=== PATIENT | female | born 1950 | race Caucasian/White ===

== ENCOUNTER 2021-02-04 12:39 | Inpatient (IN) | payer MEDICARE ==
[2021-02-04] MEDS ORDERED: MORPHINE SULFATE 4 MG/ML SYRINGE IV STA (13:18)
[2021-02-04] MEDS ORDERED: ONDANSETRON 4 MG/2 ML VIAL IVP STA (13:18)
[2021-02-04 13:36] LABS: Basophils % (A) 0 %; Eosinophils % (A) 0 %; HCT 43.6 % (34.0-46.0); HGB 14.6 gm/dL (11.4-16.0); Lymphocytes # (A) 0.7 k/uL (1.0-4.8); Lymphocytes % (A) 24 %; MCH 30.7 pg (25.0-35.0); MCHC 33.4 g/dL (31.0-37.0); MCV 92.1 fL (80.0-100.0); Mean Platelet Volume 7.9; Monocytes # (A) 0.2 k/uL (0-1.0); Monocytes % (A) 7 %; Neutrophils % (A) 65 %; Platelet Count 142 k/uL (150-450); RBC 4.74 m/uL (3.80-5.40); RDW 13.4 % (11.5-15.5)
[2021-02-04 13:50] LABS: Albumin 3.3 g/dL (3.5-5.0); Calcium 8.5 mg/dL (8.4-10.2); INR 0.9 (<1.2); Magnesium 2.1 mg/dL (1.6-2.3); Partial Thromboplastin Time 23.5 sec (22.0-30.0); Potassium 4.2 mmol/L (3.5-5.1); Prothrombin Time 10.2 sec (9.0-12.0); Total Bilirubin 0.8 mg/dL (0.2-1.3); Total Protein 6.1 g/dL (6.3-8.2)
--- NOTE | 2021-02-04 15:19 | XR ---
EXAMINATION TYPE: XR chest 2V DATE OF EXAM: 02/04/2021 COMPARISON: NONE HISTORY: Shortness of breath TECHNIQUE: Frontal and lateral views of the chest are obtained. FINDINGS: Scattered senescent parenchymal changes noted. Hyperinflation compatible with COPD. Reticulonodular infiltrates are seen bilaterally compatible with underlying pneumonia. Heart size is stable. Mediastinal structures are stable and grossly unremarkable. No evidence for hilar prominence. Degenerative changes dorsal spine. IMPRESSION: 1. Reticulonodular infiltrates are seen bilaterally compatible with underlying pneumonia.
[2021-02-04] MEDS ORDERED: HYDROmorphone 0.5 MG/0.5 ML SYRINGE IVP STA (15:25)
--- NOTE | 2021-02-04 15:30 | ED ---
General Adult HPI - General Chief complaint: Back Pain/Injury Stated complaint: Back pain/Covid+ Time Seen by Provider: 02/04/21 12:52 Source: patient, EMS, RN notes reviewed Mode of arrival: EMS Limitations: no limitations - History of Present Illness Initial comments: This a 70-year-old female presents emergency from via EMS chief complaint of back pain, COVID-19, dyspnea. Patient diagnosed with COVID-19 few days ago did receive monoclonal antibodies. She states she steadily worsening. Patient states she's had increased shortness of breath while on oxygen at home. Patient does have known COPD. Patient states she's having right-sided upper back pain. States it hurts when she coughs, moves. No trauma denies abdominal pain no nausea vomiting no leg swelling or leg pain. - Related Data Allergies Allergy/AdvReac Type Severity Reaction Status Date / Time ibuprofen [From Motrin] Allergy Unknown Verified 02/04/21 13:10 Review of Systems ROS Statement: Those systems with pertinent positive or pertinent negative responses have been documented in the HPI. ROS Other: All systems not noted in ROS Statement are negative. Past Medical History Past Medical History: Asthma, COPD, Neurologic Disorder History of Any Multi-Drug Resistant Organisms: None Reported Past Surgical History: Back Surgery, Hernia Repair, Hysterectomy, Tubal Ligation Past Psychological History: Bipolar Smoking Status: Never smoker Past Alcohol Use History: None Reported Past Drug Use History: None Reported General Exam General appearance: alert, in no apparent distress Head exam: Present: atraumatic, normocephalic, normal inspection Eye exam: Present: normal appearance, PERRL, EOMI. Absent: scleral icterus, conjunctival injection, periorbital swelling ENT exam: Present: normal exam, normal oropharynx, mucous membranes moist Neck exam: Present: normal inspection, full ROM. Absent: tenderness, meningismus, lymphadenopathy Respiratory exam: Present: respiratory distress, wheezes, decreased breath sounds. Absent: normal lung sounds bilaterally, rales, rhonchi, stridor Cardiovascular Exam: Present: regular rate, normal rhythm, normal heart sounds. Absent: systolic murmur, diastolic murmur, rubs, gallop, clicks GI/Abdominal exam: Present: soft, normal bowel sounds. Absent: distended, tenderness, guarding, rebound, rigid Course Vital Signs 02/04/21 02/04/21 02/04/21 13:04 15:25 15:53 Temperature 98.2 F Pulse Rate 70 79 Respiratory 18 16 Rate Blood Pressure 134/78 136/72 O2 Sat by Pulse 93 L 88 L 92 L Oximetry EKG Findings - EKG Comments: EKG Findings:: EKG performed at 13:38 normal sinus rhythm rate of 67 TX 182 QRS 74 QT/QTC 428/452 Medical Decision Making - Medical Decision Making Patient presented for increasing difficulty breathing, back pain. Patient's having significant bouts of hypoxia and 80s. Patient is wearing more oxygenation at this time. She started receiving monoclonal antibodies. Patient will be admitted for COVID-19 pneumonia. - Lab Data Result diagrams: 02/04/21 13:27 02/04/21 13:27 Lab Results 02/04/21 02/04/21 02/04/21 Range/Units 13:27 13:27 13:27 WBC 3.0 L (3.8-10.6) k/uL RBC 4.74 (3.80-5.40) m/uL Hgb 14.6 (11.4-16.0) gm/dL Hct 43.6 (34.0-46.0) % MCV 92.1 (80.0-100.0) fL MCH 30.7 (25.0-35.0) pg MCHC 33.4 (31.0-37.0) g/dL RDW 13.4 (11.5-15.5) % Plt Count 142 L (150-450) k/uL MPV 7.9 Neutrophils % 65 % Lymphocytes % 24 % Monocytes % 7 % Eosinophils % 0 % Basophils % 0 % Neutrophils # 2.0 (1.3-7.7) k/uL Lymphocytes # 0.7 L (1.0-4.8) k/uL Monocytes # 0.2 (0-1.0) k/uL Eosinophils # 0.0 (0-0.7) k/uL Basophils # 0.0 (0-0.2) k/uL PT 10.2 (9.0-12.0) sec INR 0.9 (<1.2) APTT 23.5 (22.0-30.0) sec D-Dimer 0.43 (<0.60) mg/L FEU Sodium 138 (137-145) mmol/L Potassium 4.2 (3.5-5.1) mmol/L Chloride 104 (98-107) mmol/L Carbon Dioxide 28 (22-30) mmol/L Anion Gap 6 mmol/L BUN 11 (7-17) mg/dL Creatinine 0.86 (0.52-1.04) mg/dL Est GFR (CKD-EPI)AfAm 79 (>60 ml/min/1.73 sqM) Est GFR (CKD-EPI)NonAf 68 (>60 ml/min/1.73 sqM) Glucose 107 H (74-99) mg/dL Calcium 8.5 (8.4-10.2) mg/dL Magnesium 2.1 (1.6-2.3) mg/dL Total Bilirubin 0.8 (0.2-1.3) mg/dL AST 41 H (14-36) U/L ALT 21 (4-34) U/L Alkaline Phosphatase 57 (38-126) U/L Troponin I (0.000-0.034) ng/mL NT-Pro-B Natriuret Pep pg/mL Total Protein 6.1 L (6.3-8.2) g/dL Albumin 3.3 L (3.5-5.0) g/dL Lipase 403 H (23-300) U/L 02/04/21 02/04/21 Range/Units 13:27 13:27 WBC (3.8-10.6) k/uL RBC (3.80-5.40) m/uL Hgb (11.4-16.0) gm/dL Hct (34.0-46.0) % MCV (80.0-100.0) fL MCH (25.0-35.0) pg MCHC (31.0-37.0) g/dL RDW (11.5-15.5) % Plt Count (150-450) k/uL MPV Neutrophils % % Lymphocytes % % Monocytes % % Eosinophils % % Basophils % % Neutrophils # (1.3-7.7) k/uL Lymphocytes # (1.0-4.8) k/uL Monocytes # (0-1.0) k/uL Eosinophils # (0-0.7) k/uL Basophils # (0-0.2) k/uL PT (9.0-12.0) sec INR (<1.2) APTT (22.0-30.0) sec D-Dimer (<0.60) mg/L FEU Sodium (137-145) mmol/L Potassium (3.5-5.1) mmol/L Chloride (98-107) mmol/L Carbon Dioxide (22-30) mmol/L Anion Gap mmol/L BUN (7-17) mg/dL Creatinine (0.52-1.04) mg/dL Est GFR (CKD-EPI)AfAm (>60 ml/min/1.73 sqM) Est GFR (CKD-EPI)NonAf (>60 ml/min/1.73 sqM) Glucose (74-99) mg/dL Calcium (8.4-10.2) mg/dL Magnesium (1.6-2.3) mg/dL Total Bilirubin (0.2-1.3) mg/dL AST (14-36) U/L ALT (4-34) U/L Alkaline Phosphatase (38-126) U/L Troponin I <0.012 (0.000-0.034) ng/mL NT-Pro-B Natriuret Pep 60 pg/mL Total Protein (6.3-8.2) g/dL Albumin (3.5-5.0) g/dL Lipase (23-300) U/L Disposition Clinical Impression: Hypoxia, COVID-19, Pneumonia due to COVID-19 virus Disposition: ADMITTED IP TO THIS HOSP Condition: Fair Referrals: Ho Riggs MD [Primary Care Provider] - 1-2 days
[2021-02-04] MEDS ORDERED: ACETAMINOPHEN TAB 325 MG TAB PO PRN (16:15)
[2021-02-04] MEDS ORDERED: MORPHINE SULFATE 4 MG/ML SYRINGE IV PRN (16:15)
[2021-02-04] MEDS ORDERED: NALOXONE 0.4 MG/ML 1 ML VIAL IV PRN (16:15)
[2021-02-04] MEDS ORDERED: HYDROmorphone 0.5 MG/0.5 ML SYRINGE IVP PRN (16:15)
[2021-02-04 16:17] LABS: C Reactive Protein 3.5 mg/dL (<1.0)
[2021-02-04] MEDS ORDERED: DEXAMETHASONE SOD PHOSPHATE 10 MG/ML 1 ML VIAL IVP STA (16:17)
--- NOTE | 2021-02-04 16:37 | CT ---
EXAMINATION TYPE: CT chest angio for PE DATE OF EXAM: 02/04/2021 COMPARISON: Chest radiograph same day HISTORY: pain sob CT DLP: 238 mGycm Automated exposure control for dose reduction was used. CONTRAST: CT Chest for pulmonary embolism performed with with IV Contrast, patient injected with 100 mL of Isov ue 370. FINDINGS: LUNGS: Centrilobular emphysematous changes are seen throughout the lungs. Superimposed consolidation and groundglass opacities are present most proximal lung apices. No evidence for pleural effusion or pneumothorax.. There is no pleural effusion or pneumothorax seen. The tracheobronchial tree is pat ent. MEDIASTINUM: There is satisfactory enhancement of the pulmonary artery and its branches, there is no CT evidence for pulmonary embolism. There are no greater than 1 cm hilar or mediastinal lymph nodes. No pericardial effusion is seen. OTHER: The gallbladder is surgically absent. There is diffuse low-attenuation to the liver parenchym a. Scattered spleen and liver calcified granulomas are present. There is a small hiatal hernia. Left thyroid nodule measuring up to 1.4 cm. Atherosclerosis of the aorta and coronary arteries are present . IMPRESSION: 1. No evidence of pulmonary embolus. 2. Emphysematous changes with superimposed consolidation and groundglass opacities concerning for mul tifocal pneumonia. 3. Hepatic steatosis. 4. Left thyroid nodule.
[2021-02-04] MEDS: SODIUM CHLORIDE 0.9% 1,000 ML IV SCH (17:02)
[2021-02-04] MEDS: ONDANSETRON 4 MG/2 ML VIAL IVP PRN (17:02)
[2021-02-04] MEDS ORDERED: LORATADINE 10 MG TAB PO PRN (18:58)
[2021-02-04] MEDS ORDERED: IPRATROPIUM-ALBUTEROL 3 ML NEB INHALATION SCH (20:00)
[2021-02-04] MEDS ORDERED: ALBUTEROL NEBULIZED 2.5 MG/3 ML INHALATION PRN (21:27)
[2021-02-04] MEDS: ALBUTEROL HFA INHALER INHALATION PRN (21:58)
[2021-02-05] MEDS: DONEPEZIL 5 MG TAB PO SCH ×2 (01:39→21:03)
[2021-02-05] MEDS: PANTOPRAZOLE 40 MG TABLET PO SCH ×2 (01:39→21:03)
[2021-02-05] MEDS: lamoTRIgine 100 MG TAB PO SCH ×4 (01:39→21:04)
[2021-02-05] MEDS: QUEtiapine 50 MG TAB PO SCH ×2 (02:16→21:03)
[2021-02-05] MEDS: ONDANSETRON 4 MG/2 ML VIAL IVP PRN ×2 (03:15→10:22)
[2021-02-05 04:49] LABS: Glucose,Whole Blood 156 mg/dL (75-99)
[2021-02-05] MEDS: ALBUTEROL HFA INHALER INHALATION PRN (08:14)
[2021-02-05] MEDS: ASCORBIC ACID 500 MG TAB PO SCH (08:37)
[2021-02-05] MEDS: CHOLECALCIFEROL 25 MCG (1000 IU) TABLET PO SCH (08:37)
[2021-02-05] MEDS: PRAVASTATIN SODIUM 20 MG TAB PO SCH (08:38)
[2021-02-05] MEDS ORDERED: ZINC SULFATE 220 MG CAP PO SCH (09:00)
[2021-02-05] MEDS ORDERED: FAMOTIDINE 20 MG TAB PO SCH (09:00)
[2021-02-05] MEDS: ENOXAPARIN 40 MG/0.4 ML SYRINGE SQ SCH (11:56)
[2021-02-05] MEDS: DEXAMETHASONE SOD PHOSPHATE 10 MG/ML 1 ML VIAL IVP SCH (11:56)
[2021-02-05] MEDS ORDERED: MAGNESIUM HYDROXIDE 2,400 MG/10 ML CUP PO PRN (13:09)
[2021-02-05] MEDS ORDERED: CALCIUM CARBONATE 500 MG CHEWABLE PO PRN (13:09)
[2021-02-05] MEDS ORDERED: ALPRAZolam 0.25 MG TAB PO PRN (13:09)
[2021-02-05] MEDS ORDERED: LACTULOSE 20 GM/30 ML CUP PO PRN (13:09)
[2021-02-05] MEDS ORDERED: MELATONIN 3 MG TABLET PO PRN (13:09)
--- NOTE | 2021-02-05 13:13 | P.HPIM ---
History of Present Illness H&P Date: 02/05/21 Chief Complaint: Short of breath This is a 70-year-old patient who follows with Dr. Riggs. Chronic stable medical conditions include bipolar disorder, chronic low back pain, GERD, peripheral neuropathy, some cognitive impairment. Patient did not take the COVID-19 vaccine. She started on bedrest 20 symptoms around January 30. That included shortness of breath cough though she has some chronic cough because of her COPD. At her baseline uses 2 L of oxygen at home. She did receive monoclonal antibodies. Her symptoms progressively became worse. She also had diarrhea which is actually better now poor appetite weak diet and rundown. aches and pains. Decided to come in. At her baseline patient lives alone and does use a walker. She is a previous smoker. Review of systems: GEN.: Weak diet decreased appetite EYES: None HEENT: None NECK: None RESPIRATORY: As above CARDIOVASCULAR: None GASTROINTESTINAL: Had diarrhea which is better GENITOURINARY: Urinary incontinence MUSCULOSKELETAL: Joint pains including lower back pain LYMPHATICS: None HEMATOLOGICAL: None PSYCHIATRY: Forgetful NEUROLOGICAL: Does use a walker Past medical history to include: COPD, peripheral neuropathy, gait dysfunction uses a walker, home oxygen 2 L Social history: Lives alone. Does use a walker. No alcohol. Stop smoking 16 years ago. Smoked up to 3 packs a day for 42 years. Family history: Reviewed, noncontributory to presentation Physical examination: VITAL SIGNS: 98.2, 70, 18, 1 43 x 78, 88% on 2 L upon presentation GENERAL: BMI 28.3, reclining in bed, short of breath, tired. EYES: Pupils equal. Conjunctiva normal. HEENT: External appearance of nose and ears normal, oral cavity grossly normal. NECK: JVD not raised; masses not palpable. HEART: First and second heart sounds are normal; no edema. LUNGS: Respiratory rate increased, using accessory muscles, diminished breath sounds prolonged expiration and occasional crackles. ABDOMEN: Soft, nontender, liver spleen not palpable, no masses palpable. PSYCH: Alert and oriented x3; mood and affect anxious MUSCULAR skeletal: Evidence of OA in several joints bilateral NEUROLOGICAL: Cranial nerves grossly intact; no facial asymmetry, power and sensation grossly intact. LYMPHATICS: No lymph nodes palpable in the axilla and neck INVESTIGATIONS, reviewed in the clinical context: White count 3 hemoglobin 14.6 platelets 142 lymphocytes 0.7 d-dimer 0.43 sodium 138 potassium 4.2 BUN 11 creatinine 0.86 CRP 3.5 EKG tracing personally reviewed by me-normal sinus rhythm, rate 67 Chest x-ray film personally reviewed by me-hyperinflated. Bilateral infiltrates CT chest and U for PE: No evidence of PE. 570 changes with superimposed consolidation and groundglass opacities. Hepatic steatosis Assessment and plan: -Acute severe COVID-19 pneumonitis in a patient symptoms been present since January 30. Patient did receive monoclonal antibodies. Symptoms have been progressive. Dexamethasone. Subcu Lovenox. Vitamin C vitamin D. Zinc. -Chronic hypoxic is pretty failure from underlying COPD Patient on 2 L of oxygen at home -Acute hypoxic respiratory failure secondary to COVID-19 pneumonitis Currently on 5 L of oxygen. Try to keep the pulse ox above 92% -Acute medical asthenia, anorexia from COVID-19 Medical activity as tolerated. Encourage oral intake. Ensure 1 can by mouth 3 times a day -Chronic gait dysfunction uses a walker at baseline Fall precautions -Cognitive impairment Check B12 levels. -Chronic urinary stress incontinence Dependence -GERD Pepcid 20 mg twice a day Dexamethasone. Subcu Lovenox. Incentive spirometry. Add Ensure supplement. Up in chair. Pulmonary consult. Care was discussed the patient. Questions answered. Past Medical History Past Medical History: Asthma, COPD, Neurologic Disorder History of Any Multi-Drug Resistant Organisms: None Reported Past Surgical History: Back Surgery, Hernia Repair, Hysterectomy, Tubal Ligation Past Psychological History: Bipolar Smoking Status: Never smoker Past Alcohol Use History: None Reported Past Drug Use History: None Reported Medications and Allergies Home Medications Medication Instructions Recorded Confirmed Type Ascorbic Acid [Vitamin C] 500 mg PO DAILY 02/04/21 02/04/21 History Cholecalciferol [Vitamin D3 (25 50 mcg PO DAILY 02/04/21 02/04/21 History Mcg = 1000 Iu)] Donepezil [Aricept] 5 mg PO HS 02/04/21 02/04/21 History Famotidine [Pepcid] 20 mg PO DAILY 02/04/21 02/04/21 History Ipratropium-Albuterol Nebulize 3 ml INHALATION RT-Q6H 02/04/21 02/04/21 History [Duoneb 0.5 mg-3 mg/3 ml Soln] Loratadine [Claritin] 10 mg PO DAILY PRN 02/04/21 02/04/21 History Pantoprazole [Protonix] 40 mg PO HS 02/04/21 02/04/21 History Pravastatin Sodium [Pravachol] 20 mg PO DAILY 02/04/21 02/04/21 History QUEtiapine [SEROquel] 50 mg PO HS 02/04/21 02/04/21 History Zinc 50 mg PO DAILY 02/04/21 02/04/21 History lamoTRIgine [LaMICtal] 100 mg PO DAILY@1200 02/04/21 02/04/21 History lamoTRIgine [LaMICtal] 200 mg PO BID 02/04/21 02/04/21 History Allergies Allergy/AdvReac Type Severity Reaction Status Date / Time ibuprofen [From Motrin] Allergy Unknown Verified 02/04/21 17:28 Physical Exam Vitals: Vital Signs Temp Pulse Pulse Resp BP BP Pulse Ox 02/05/21 08:00 97.5 F L 74 20 102/64 92 L 02/05/21 04:59 64 15 102/64 90 L 02/05/21 02:20 97.8 F 72 20 119/67 91 L 02/04/21 21:39 88 L 02/04/21 20:45 64 15 02/04/21 20:15 97.6 F 71 20 121/69 92 L 02/04/21 18:19 97.6 F 63 20 115/60 93 L 02/04/21 17:07 61 24 90 L 02/04/21 15:53 79 16 136/72 92 L 02/04/21 15:25 88 L 02/04/21 13:04 98.2 F 70 18 134/78 93 L Intake and Output 02/04/21 02/05/21 02/05/21 22:59 06:59 14:59 Intake Total 500 Output Total 350 Balance 150 Intake: Oral 500 Output: Urine 350 Other: Voiding Method Bedside Commode # Voids 1 # Bowel Movements 0 Results CBC & Chem 7: 02/04/21 13:27 02/04/21 13:27 Labs: Abnormal Lab Results - Last 24 Hours (Table) 02/04/21 02/04/21 02/04/21 Range/Units 13:27 13:27 13:27 WBC 3.0 L (3.8-10.6) k/uL Plt Count 142 L (150-450) k/uL Lymphocytes # 0.7 L (1.0-4.8) k/uL Glucose 107 H (74-99) mg/dL POC Glucose (mg/dL) (75-99) mg/dL AST 41 H (14-36) U/L Lactate Dehydrogenase 699 H (313-618) U/L C-Reactive Protein 3.5 H (<1.0) mg/dL Total Protein 6.1 L (6.3-8.2) g/dL Albumin 3.3 L (3.5-5.0) g/dL Lipase 403 H (23-300) U/L 02/05/21 Range/Units 04:42 WBC (3.8-10.6) k/uL Plt Count (150-450) k/uL Lymphocytes # (1.0-4.8) k/uL Glucose (74-99) mg/dL POC Glucose (mg/dL) 156 H (75-99) mg/dL AST (14-36) U/L Lactate Dehydrogenase (313-618) U/L C-Reactive Protein (<1.0) mg/dL Total Protein (6.3-8.2) g/dL Albumin (3.5-5.0) g/dL Lipase (23-300) U/L
[2021-02-05] MEDS: SODIUM CHLORIDE 0.9% 1,000 ML IV SCH ×2 (14:04→21:05)
--- NOTE | 2021-02-05 14:24 | P.CNPUL ---
History of Present Illness Consult date: 02/05/21 Reason for consult: dyspnea, hypoxemia, pneumonia History of present illness: 68-year-old female patient, being seen currently for COVID 19 related pneumonia. The patient is confused. She is having emesis. She is nauseated. She claims also to have diarrhea. She has been having symptoms for several days and the patient started having symptoms on 01/30/2021. She presented to her primary care physician and from [facility] to patient received multiple antibiotics. Her symptoms progressed and the patient got worse and for that carl son she presented to the hospital and she was transferred to us. She has general body weakness. She has body aches. She is having some limited cough. Currently on 2 L about 2 by nasal cannula. No chest pain. On her blood work, the white cell count is at 3 with a hemoglobin of 14.6 and a platelet count of 142, normal coagulation profile, [place] [address], CRP is at 3.5, amylase and lipase are not elevated. LFTs are none elevated. Normal renal function. Normal electrolytes. Glucose is 156. Review of Systems ROS unobtainable: due to mental status Past Medical History Past Medical History: Asthma, COPD, Neurologic Disorder History of Any Multi-Drug Resistant Organisms: None Reported Past Surgical History: Back Surgery, Hernia Repair, Hysterectomy, Tubal Ligation Past Psychological History: Bipolar Smoking Status: Never smoker Past Alcohol Use History: None Reported Past Drug Use History: None Reported Medications and Allergies Home Medications Medication Instructions Recorded Confirmed Type Ascorbic Acid [Vitamin C] 500 mg PO DAILY 02/04/21 02/04/21 History Cholecalciferol [Vitamin D3 (25 50 mcg PO DAILY 02/04/21 02/04/21 History Mcg = 1000 Iu)] Donepezil [Aricept] 5 mg PO HS 02/04/21 02/04/21 History Famotidine [Pepcid] 20 mg PO DAILY 02/04/21 02/04/21 History Ipratropium-Albuterol Nebulize 3 ml INHALATION RT-Q6H 02/04/21 02/04/21 History [Duoneb 0.5 mg-3 mg/3 ml Soln] Loratadine [Claritin] 10 mg PO DAILY PRN 02/04/21 02/04/21 History Pantoprazole [Protonix] 40 mg PO HS 02/04/21 02/04/21 History Pravastatin Sodium [Pravachol] 20 mg PO DAILY 02/04/21 02/04/21 History QUEtiapine [SEROquel] 50 mg PO HS 02/04/21 02/04/21 History Zinc 50 mg PO DAILY 02/04/21 02/04/21 History lamoTRIgine [LaMICtal] 100 mg PO DAILY@1200 02/04/21 02/04/21 History lamoTRIgine [LaMICtal] 200 mg PO BID 02/04/21 02/04/21 History Allergies Allergy/AdvReac Type Severity Reaction Status Date / Time ibuprofen [From Motrin] Allergy Unknown Verified 02/04/21 17:28 Physical Exam Vitals: Vital Signs Temp Pulse Pulse Resp BP BP Pulse Ox 02/05/21 08:00 97.5 F L 74 20 102/64 92 L 02/05/21 04:59 64 15 102/64 90 L 02/05/21 02:20 97.8 F 72 20 119/67 91 L 02/04/21 21:39 88 L 02/04/21 20:45 64 15 02/04/21 20:15 97.6 F 71 20 121/69 92 L 02/04/21 18:19 97.6 F 63 20 115/60 93 L 02/04/21 17:07 61 24 90 L 02/04/21 15:53 79 16 136/72 92 L 02/04/21 15:25 88 L Intake and Output 02/04/21 02/05/21 02/05/21 22:59 06:59 14:59 Intake Total 500 Output Total 350 350 Balance 150 -350 Intake: Oral 500 Output: Urine 350 350 Other: Voiding Method Bedside Commode Bedside Commode Diaper Incontinent # Voids 1 1 # Bowel Movements 0 GENERAL: BMI 28.3, reclining in bed, short of breath, tired. The patient is currently on 2 L of oxygen by nasal cannula. She is nauseated and at time of my evaluation she was having some dry heaves. EYES: Pupils equal. Conjunctiva normal. HEENT: External appearance of nose and ears normal, oral cavity grossly normal. NECK: JVD not raised; masses not palpable. HEART: First and second heart sounds are normal; no edema. LUNGS: Respiratory rate increased, using accessory muscles, diminished breath sounds prolonged expiration and occasional crackles. ABDOMEN: Soft, nontender, liver spleen not palpable, no masses palpable. PSYCH: Alert and oriented x3; mood and affect anxious MUSCULAR skeletal: Evidence of OA in several joints bilateral NEUROLOGICAL: Cranial nerves grossly intact; no facial asymmetry, power and sensation grossly intact. There is underlying confusion/encephalopathy on today's evaluation. LYMPHATICS: No lymph nodes palpable in the axilla and neck Results - Laboratory Findings CBC and BMP: 02/04/21 13:27 02/04/21 13:27 PT/INR, D-dimer PT 10.2 sec (9.0-12.0) 02/04/21 13:27 INR 0.9 (<1.2) 02/04/21 13:27 D-Dimer 0.43 mg/L FEU (<0.60) 02/04/21 13:27 Abnormal lab findings: Abnormal Labs 02/04/21 02/04/21 02/04/21 13:27 13:27 13:27 WBC 3.0 L Plt Count 142 L Lymphocytes # 0.7 L Glucose 107 H POC Glucose (mg/dL) AST 41 H Lactate Dehydrogenase 699 H C-Reactive Protein 3.5 H Total Protein 6.1 L Albumin 3.3 L Lipase 403 H 02/05/21 04:42 WBC Plt Count Lymphocytes # Glucose POC Glucose (mg/dL) 156 H AST Lactate Dehydrogenase C-Reactive Protein Total Protein Albumin Lipase - Diagnostic Findings Chest x-ray: image reviewed Assessment and Plan Plan: 1 acute bilateral COVID 19 related pneumonia. The patient is not vaccinated. The patient has a history of monoclonal antibodies. Symptoms started about 01/30/2021. Symptoms are essentially related to GI system and the patient has increased nausea and a few episodes of diarrhea. She is having some shortness of breath. The patient is currently on 2 L of oxygen by nasal cannula. CT angiogram was completed and there is no evidence of pulmonary embolism and there is bilateral pulmonary infiltrates consistent with infection. Inflammatory markers are mildly elevated and the patient is currently on 2 L of oxygen by nasal cannula. 2 acute hypoxic respiratory failure currently on 2 L of oxygen by nasal cannula 3 encephalopathy, could be covered-induced although underlying dementia cannot be completely excluded 4 COPD at baseline 5 chronic hypoxic respiratory failure related to COPD 6 chronic stress urinary incontinence. 7 generalized fatigue and weakness secondary to COVID 19. 8 leukopenia and thrombocytopenia secondary to COVID 19 infection Plan Hydrate the patient IV fluids and the patient is currently on normal saline at rate of 75 mL an hour Continue Decadron Continue articulation with Lovenox 40 mg subcu every 24 hours for DVT prophylaxis Continue Symbicort Continue albuterol HFA 2 puffs 4 times a day Home medications were resumed Monitor the patient's gastrointestinal symptoms We'll not going to introduce Remdesivir at this point in time. I'm not absolutely sure of the date of symptom onset. We'll continue to follow.
[2021-02-05] MEDS: ALBUTEROL HFA INHALER INHALATION SCH ×3 (16:25→19:39)
[2021-02-05] MEDS: SYMBICORT 80-4.5 MCG INHALER INHALATION SCH (19:39)
[2021-02-05] MEDS: FAMOTIDINE 20 MG TAB PO SCH (21:04)
[2021-02-06 07:14] LABS: Glucose,Whole Blood 99 mg/dL (75-99)
[2021-02-06] MEDS: ASCORBIC ACID 500 MG TAB PO SCH (08:35)
[2021-02-06] MEDS: CHOLECALCIFEROL 25 MCG (1000 IU) TABLET PO SCH (08:35)
[2021-02-06] MEDS: ENOXAPARIN 40 MG/0.4 ML SYRINGE SQ SCH (08:36)
[2021-02-06] MEDS: lamoTRIgine 100 MG TAB PO SCH ×3 (08:36→21:26)
[2021-02-06] MEDS: FAMOTIDINE 20 MG TAB PO SCH (08:36)
[2021-02-06] MEDS: DEXAMETHASONE SOD PHOSPHATE 10 MG/ML 1 ML VIAL IVP SCH (08:36)
[2021-02-06] MEDS: ALBUTEROL HFA INHALER INHALATION SCH ×4 (08:41→19:35)
[2021-02-06] MEDS: SYMBICORT 80-4.5 MCG INHALER INHALATION SCH ×2 (08:41→19:35)
[2021-02-06] MEDS: PRAVASTATIN SODIUM 20 MG TAB PO SCH (09:00)
[2021-02-06] MEDS: ZINC SULFATE 220 MG CAP PO SCH (09:00)
--- NOTE | 2021-02-06 11:05 | P.PN ---
Subjective Progress Note Date: 02/06/21 Principal diagnosis: Acute hypoxic respiratory failure secondary to COVID-19 pneumonia 68-year-old female patient, being seen currently for COVID 19 related pneumonia. The patient is confused. She is having emesis. She is nauseated. She claims also to have diarrhea. She has been having symptoms for several days and the patient started having symptoms on 01/30/2021. She presented to her primary care physician and from [facility] to patient received multiple antibi otics. Her symptoms progressed and the patient got worse and for that reason she presented to the hospital and she was transferred to us. She has general body weakness. She has body aches. She is having some limited cough. Currently on 2 L about 2 by nasal cannula. No chest pain. On her blood work, the white cell count is at 3 with a hemoglobin of 14.6 and a platelet count of 142, normal coagulation profile, [place] d-dimer, L[place] [address], CRP is at 3.5, amylase and lipase are not elevated. LFTs are none elevated. Normal renal function. Normal electrolytes. Glucose is 156. Patient was reevaluated today on 02/06/2021, her FiO2 requirement went up overnight, she is now on 6 L nasal cannula, however clinically the patient is feeling better, chest x-ray clearly shows bilateral interstitial infiltrates consistent with COVID-19 pneumonia. WBC count is 3.0 hemoglobin 14.6. LDH is 699 C-reactive protein is 3.5, otherwise the labs are unremarkable, d-dimer is 0.43. Objective - Vital Signs Vital signs: Vital Signs Temp 97.8 F 02/06/21 08:31 Pulse 76 02/06/21 08:31 Resp 18 02/06/21 08:31 BP 118/62 02/06/21 08:31 Pulse Ox 92 L 02/06/21 08:31 Intake & Output 02/05/21 02/06/21 02/06/21 18:59 06:59 18:59 Intake Total 1030 600 118 Output Total 350 Balance 680 600 118 Weight 68.039 kg Intake: Intake, IV Titration 550 600 Amount Sodium Chloride 0.9% 1, 550 600 000 ml @ 75 mls/hr IV . [id number] [facility] Rx#:[id number] Oral 480 118 Output: Urine 350 Other: Voiding Method Bedside Commode Bedside Commode Diaper Diaper Incontinent Incontinent # Voids 3 1 1 # Bowel Movements 2 - Exam Physical Exam: Revealed a 70-year-old female in no distress on 6 L high flow nasal cannula Head: Atraumatic normocephalic. HEENT:[Neck is supple.] [No neck masses.] [No thyromegaly.] [No JVD.] Chest: [Ventricle chest expansion fine crackles at the bases no rhonchi and no wheezes Cardiac Exam: [Normal S1 and S2, no S3 gallop, no murmur.] Abdomen: [Soft, nontender, no megaly, no rebound, no guarding, normal bowel sounds.] Extremities: [No clubbing, no edema, no cyanosis.] Neurological Exam: [No focal neurologic deficit.] Alert oriented 3. Psychiatric: Normal mood, affect and normal mental status examination. Skin: No rashes. - Labs CBC & Chem 7: 02/04/21 13:27 02/04/21 13:27 Assessment and Plan Assessment: Acute hypoxic referral failure secondary to COVID-19 pneumonia, patient received monoclonal antibody, symptoms actually started around 01/30, initially admitted on 2 L nasal cannula yet now on 6 L nasal cannula. Acute hypoxic respiratory failure Suspect underlying dementia History of COPD at baseline. Multiple cuts seashell symptoms related to COVID-19 infection Leukopenia and thrombocytopenia sed rate to COVID-19 infection. Recommendation: Continue oxygen and titrate accordingly Continue Decadron Continue bronchodilators Continue Lovenox/DVT prophylaxis. Continue to monitor the patient on a daily basis. Reassess in 24 hours and decide whether the patient needs to stay or could be discharged home. Not a candidate for REM, it is clearly unknown as when her symptoms actually started. We'll continue to follow. Time with Patient: Less than 30
--- NOTE | 2021-02-06 11:24 | P.PN ---
Progress Note - Text Progress Note Date: 02/06/21 Chief Complaint: Short of breath This is a 70-year-old patient who follows with Dr. Riggs. Chronic stable medical conditions include bipolar disorder, chronic low back pain, GERD, peripheral neuropathy, some cognitive impairment. Patient did not take the COVID-19 vacci ne. She started on bedrest 20 symptoms around January 30. That included shortness of breath cough though she has some chronic cough because of her COPD. At her baseline uses 2 L of oxygen at home. She did receive monoclonal antibodies. Her symptoms progressively became worse. She also had diarrhea which is actually better now poor appetite weak diet and rundown. aches and pains. Decided to come in. At her baseline patient lives alone and does use a walker. She is a previous smoker. February 06: Laying in bed. Breathing a bit better. 92% on 6 L. Did eat a little bit. Short of breath. Tired Review of systems: Was done for constitutional, cardiovascular, GI, pulmonary. relevant finding as above Active Medications Acetaminophen (Acetaminophen Tab 325 Mg Tab) 650 mg PO Q6HR PRN PRN Reason: Mild Pain or Fever > 100.5 Albuterol Sulfate (Albuterol Hfa Inhaler) 4 puff INHALATION RT-QID [facility] Last Admin: 02/06/21 08:41 Dose: 4 puff Documented by: Alprazolam (Alprazolam 0.25 Mg Tab) 0.25 mg PO Q6HR PRN PRN Reason: Anxiety Ascorbic Acid (Ascorbic Acid 500 Mg Tab) 500 mg PO DAILY [facility] Last Admin: 02/06/21 08:35 Dose: 500 mg Documented by: Budesonide/Formoterol Fumarate (Symbicort 80-4.5 Mcg Inhaler) 2 puff INHALATION RT-BID [facility] Last Admin: 02/06/21 08:41 Dose: 2 puff Documented by: Calcium Carbonate/Glycine (Calcium Carbonate 500 Mg Chewable) 1,000 mg PO Q4HR PRN PRN Reason: Dyspepsia Cholecalciferol (Cholecalciferol 25 Mcg (1000 Iu) Tablet) 50 mcg PO DAILY [facility] Last Admin: 02/06/21 08:35 Dose: 50 mcg Documented by: Dexamethasone Sodium Phosphate (Dexamethasone Sod Phosphate 10 Mg/Ml 1 Ml Vial) 6 mg IVP DAILY [facility] Last Admin: 02/06/21 08:36 Dose: 6 mg Documented by: Donepezil HCl (Donepezil 5 Mg Tab) 5 mg PO HS [facility] Last Admin: 02/05/21 21:03 Dose: 5 mg Documented by: Enoxaparin Sodium (Enoxaparin 40 Mg/0.4 Ml Syringe) 40 mg SQ DAILY [facility] Last Admin: 02/06/21 08:36 Dose: 40 mg Documented by: Famotidine (Famotidine 20 Mg Tab) 20 mg PO BID [facility] Last Admin: 02/06/21 08:36 Dose: 20 mg Documented by: Sodium Chloride (Saline 0.9%) 1,000 mls @ 75 mls/hr IV .[id number] [facility] Last Admin: 02/05/21 21:05 Dose: 75 mls/hr Documented by: Lactulose (Lactulose 20 Gm/30 Ml Cup) 20 gm PO DAILY PRN PRN Reason: Constipation Lamotrigine (Lamotrigine 100 Mg Tab) 100 mg PO DAILY@1200 [facility] Last Admin: 02/05/21 11:56 Dose: 100 mg Documented by: Lamotrigine (Lamotrigine 100 Mg Tab) 200 mg PO BID [facility] Last Admin: 02/06/21 08:36 Dose: 200 mg Documented by: Loratadine (Loratadine 10 Mg Tab) 10 mg PO DAILY PRN PRN Reason: Allergy Symptoms Magnesium Hydroxide (Magnesium Hydroxide 2,400 Mg/10 Ml Cup) 2,400 mg PO DAILY PRN PRN Reason: Constipation Melatonin (Melatonin 3 Mg Tablet) 3 mg PO HS PRN PRN Reason: Insomnia Morphine Sulfate (Morphine Sulfate 4 Mg/Ml Syringe) 4 mg IV Q4HR PRN PRN Reason: Severe Pain Naloxone HCl (Naloxone 0.4 Mg/Ml 1 Ml Vial) 0.2 mg IV Q2M PRN PRN Reason: Opioid Reversal Ondansetron HCl (Ondansetron 4 Mg/2 Ml Vial) 4 mg IVP Q8HR PRN PRN Reason: Nausea And Vomiting Last Admin: 02/05/21 10:22 Dose: 4 mg Documented by: Pantoprazole Sodium (Pantoprazole 40 Mg Tablet) 40 mg PO HS [facility] Last Admin: 02/05/21 21:03 Dose: 40 mg Documented by: Pravastatin Sodium (Pravastatin Sodium 20 Mg Tab) 20 mg PO DAILY [facility] Last Admin: 02/06/21 09:00 Dose: 20 mg Documented by: Quetiapine Fumarate (Quetiapine 50 Mg Tab) 50 mg PO HS [facility] Last Admin: 02/05/21 21:03 Dose: 50 mg Documented by: Zinc Sulfate (Zinc Sulfate 220 Mg Cap) 220 mg PO DAILY [facility] Last Admin: 02/06/21 09:00 Dose: 220 mg Documented by: Past medical history to include: COPD, peripheral neuropathy, gait dysfunction uses a walker, home oxygen 2 L Social history: Lives alone. Does use a walker. No alcohol. Stop smoking 16 years ago. Smoked up to 3 packs a day for 42 years. Family history: Reviewed, noncontributory to presentation Physical examination: VITAL SIGNS: 97.8, 76, 18, 118/62, 92% on 6 L GENERAL: reclining in bed, short of breath, tired. EYES: Pupils equal. Conjunctiva normal. HEENT: External appearance of nose and ears normal, oral cavity grossly normal. NECK: JVD not raised; masses not palpable. HEART: First and second heart sounds are normal; no edema. LUNGS: Respiratory rate increased, diminished breath sounds prolonged expiration and occasional crackles. ABDOMEN: Soft, nontender, liver spleen not palpable, no masses palpable. PSYCH: Alert and oriented x3; mood and affect anxious MUSCULAR skeletal: Evidence of OA in several joints bilateral INVESTIGATIONS, reviewed in the clinical context: B12 471 White count 3 hemoglobin 14.6 platelets 142 lymphocytes 0.7 d-dimer 0.43 sodium 138 potassium 4.2 BUN 11 creatinine 0.86 CRP 3.5 EKG tracing personally reviewed by me-normal sinus rhythm, rate 67 Chest x-ray film personally reviewed by me-hyperinflated. Bilateral infiltrates CT chest and U for PE: No evidence of PE. 570 changes with superimposed consolidation and groundglass opacities. Hepatic steatosis Assessment and plan: -Acute severe COVID-19 pneumonitis in a patient symptoms been present since January 30. Patient did receive monoclonal antibodies. : Slow to respond Dexamethasone. Subcu Lovenox. Vitamin C vitamin D. Zinc. -Chronic hypoxic is pretty failure from underlying COPD 2 L of oxygen at home -Acute hypoxic respiratory failure secondary to COVID-19 pneumonitis: Worsening Currently on 6 L of oxygen. Try to keep the pulse ox above 92% -Acute medical asthenia, anorexia from COVID-19 Medical activity as tolerated. Encourage oral intake. 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 Subcu Lovenox. Incentive spirometry. Discussed with patient. Continue current medication treatment plan
[2021-02-06 15:14] VITALS: BMI 28.3
[2021-02-06] MEDS: PANTOPRAZOLE 40 MG TABLET PO SCH (21:26)
[2021-02-06] MEDS: QUEtiapine 50 MG TAB PO SCH (21:27)
[2021-02-06] MEDS: DONEPEZIL 5 MG TAB PO SCH (21:27)
[2021-02-06] MEDS: SODIUM CHLORIDE 0.9% 1,000 ML IV SCH ×2 (22:59→23:00)
[2021-02-07] MEDS: DEXAMETHASONE SOD PHOSPHATE 10 MG/ML 1 ML VIAL IVP SCH (09:16)
[2021-02-07] MEDS: ENOXAPARIN 40 MG/0.4 ML SYRINGE SQ SCH (09:16)
[2021-02-07] MEDS: FAMOTIDINE 20 MG TAB PO SCH (09:18)
[2021-02-07] MEDS: ALBUTEROL HFA INHALER INHALATION SCH ×4 (09:18→19:37)
[2021-02-07] MEDS: SYMBICORT 80-4.5 MCG INHALER INHALATION SCH ×2 (09:18→19:37)
--- NOTE | 2021-02-07 10:21 | P.PN ---
Subjective Progress Note Date: 02/07/21 Principal diagnosis: CoVID pneumonia 68-year-old female patient, being seen currently for COVID 19 related pneumonia. The patient is confused. She is having emesis. She is nauseated. She claims also to have diarrhea. She has been having symptoms for several days and the patient started having symptoms on 01/30/2021. She presented to her primary care physician and from [facility] to patient received multiple antibiotics. Her symptoms progressed and the patient got worse and for that reason she presented to the hospital and she was transferred to us. She has g eneral body weakness. She has body aches. She is having some limited cough. Currently on 2 L about 2 by nasal cannula. No chest pain. On her blood work, the white cell count is at 3 with a hemoglobin of 14.6 and a platelet count of 142, normal coagulation profile, normal d-dimer, L[place] [address], CRP is at 3.5, amylase and lipase are not elevated. LFTs are none elevated. Normal renal function. Normal electrolytes. Glucose is 156. Patient was reevaluated today on 02/06/2021, her FiO2 requirement went up overnight, she is now on 6 L nasal cannula, however clinically the patient is feeling better, chest x-ray clearly shows bilateral interstitial infiltrates consistent with COVID-19 pneumonia. WBC count is 3.0 hemoglobin 14.6. LDH is 699 C-reactive protein is 3.5, otherwise the labs are unremarkable, d-dimer is 0.43. Patient is seen today 02/07/2021 in follow-up in the observation unit. She is currently resting in bed. Awake and alert in no acute distress. She is still having some issues with nausea. She is on 6 L nasal cannula and maintaining O2 saturation in the low 90s. She's afebrile. Hemodynamically stable. D-dimer 0.79. C-reactive protein 1.0. She is continued on Decadron, Lovenox, vitamin supplements. 0.9 normal saline at 75 ML's per hour. She is continued on Symbicort and albuterol. Objective - Vital Signs Vital signs: Vital Signs Temp 97.4 F L 02/07/21 09:10 Pulse 79 02/07/21 09:10 Resp 20 02/07/21 09:10 BP 154/72 02/07/21 09:10 Pulse Ox 92 L 12/07/21 09:10 Intake & Output 02/06/21 02/07/21 02/07/21 18:59 06:59 18:59 Intake Total 118 Balance 118 Weight 68.039 kg Intake: Oral 118 Other: Voiding Method Bedside Commode Bedside Commode Diaper Diaper Incontinent Incontinent # Voids 3 2 - Exam GENERAL EXAM: Alert, pleasant 70-year-old female, on 6 L nasal cannula, comfortable in no apparent distress. HEAD: Normocephalic. EYES: Normal reaction of pupils, equal size. NOSE: Clear with pink turbinates. THROAT: No erythema or exudates. NECK: No masses, no JVD. CHEST: No chest wall deformity. LUNGS: Equal air entry with bibasilar crackles. CVS: S1 and S2 normal with no audible murmur, regular rhythm. ABDOMEN: No hepatosplenomegaly, normal bowel sounds, no guarding or rigidity. SPINE: No scoliosis or deformity SKIN: No rashes CENTRAL NERVOUS SYSTEM: No focal deficits, tone is normal in all 4 extremities. EXTREMITIES: There is no peripheral edema. No clubbing, no cyanosis. Peripheral pulses are intact. - Labs CBC & Chem 7: 02/04/21 13:27 02/04/21 13:27 Labs: Abnormal Lab Results - Last 24 Hours (Table) 02/07/21 02/07/21 Range/Units 05:18 05:18 D-Dimer 0.79 H (<0.60) mg/L FEU C-Reactive Protein 1.0 H (<1.0) mg/dL Assessment and Plan Assessment: 1 acute bilateral COVID 19 related pneumonia. The patient is not vaccinated. The patient has a history of monoclonal antibodies. Symptoms started about 01/30/2021. Symptoms are essentially related to GI system and the patient has increased nausea and a few episodes of diarrhea. She is having some shortness of breath. CT angiogram was completed and there is no evidence of pulmonary embolism and there is bilateral pulmonary infiltrates consistent with infection. Inflammatory markers are mildly elevated and the patient is currently on 6 L of oxygen by nasal cannula. 2 acute hypoxic respiratory failure currently on 2 L of oxygen by nasal cannula 3 encephalopathy, could be covered-induced although underlying dementia cannot be completely excluded 4 COPD at baseline 5 chronic hypoxic respiratory failure related to COPD 6 chronic stress urinary incontinence. 7 generalized fatigue and weakness secondary to COVID 19. 8 leukopenia and thrombocytopenia secondary to COVID 19 infection Plan The patient was seen and evaluated today Still require 6 L high flow nasal cannula Titrate down the FiO2 as tolerated Continue Symbicort, albuterol Continue Lovenox, Decadron, vitamin supplements Increase her activity as tolerated We will continue to follow I, the cosigning physician, performed a history & physical examination of the patient. Lungs sounds bibasilar crackles. Maintaining good O2 saturations in the 90s on 6 L high flow nasal cannula. I discussed the assessment and plan of care with my nurse practitioner, Anyi Collazo. I attest to the above note as dictated by her.
[2021-02-07] MEDS: ASCORBIC ACID 500 MG TAB PO SCH (12:08)
[2021-02-07] MEDS: lamoTRIgine 100 MG TAB PO SCH ×3 (12:08→20:10)
[2021-02-07] MEDS: CHOLECALCIFEROL 25 MCG (1000 IU) TABLET PO SCH (12:08)
[2021-02-07] MEDS: PRAVASTATIN SODIUM 20 MG TAB PO SCH (12:08)
[2021-02-07] MEDS: ZINC SULFATE 220 MG CAP PO SCH (12:09)
--- NOTE | 2021-02-07 14:36 | P.PN ---
Progress Note - Text Progress Note Date: 02/07/21 Chief Complaint: Short of breath This is a 70-year-old patient who follows with Dr. Riggs. Chronic stable medical conditions include bipolar disorder, chronic low back pain, GERD, peripheral neuropathy, some cognitive impairment. Patient did not take the COVID-19 vacci ne. She started on bedrest 20 symptoms around January 30. That included shortness of breath cough though she has some chronic cough because of her COPD. At her baseline uses 2 L of oxygen at home. She did receive monoclonal antibodies. Her symptoms progressively became worse. She also had diarrhea which is actually better now poor appetite weak diet and rundown. aches and pains. Decided to come in. At her baseline patient lives alone and does use a walker. She is a previous smoker. February 06: Laying in bed. Breathing a bit better. 92% on 6 L. Did eat a little bit. Short of breath. Tired February 07: Propped up in bed. Tired. Short of breath. On 6 L nasal cannula. Oral intake low Review of systems: Was done for constitutional, cardiovascular, GI, pulmonary. relevant finding as above Active Medications Acetaminophen (Acetaminophen Tab 325 Mg Tab) 650 mg PO Q6HR PRN PRN Reason: Mild Pain or Fever > 100.5 Albuterol Sulfate (Albuterol Hfa Inhaler) 4 puff INHALATION RT-QID [facility] Last Admin: 02/07/21 11:47 Dose: 4 puff Documented by: Alprazolam (Alprazolam 0.25 Mg Tab) 0.25 mg PO Q6HR PRN PRN Reason: Anxiety Ascorbic Acid (Ascorbic Acid 500 Mg Tab) 500 mg PO DAILY [facility] Last Admin: 02/07/21 12:08 Dose: Not Given Documented by: Budesonide/Formoterol Fumarate (Symbicort 80-4.5 Mcg Inhaler) 2 puff INHALATION RT-BID [facility] Last Admin: 02/07/21 09:18 Dose: 2 puff Documented by: Calcium Carbonate/Glycine (Calcium Carbonate 500 Mg Chewable) 1,000 mg PO Q4HR PRN PRN Reason: Dyspepsia Cholecalciferol (Cholecalciferol 25 Mcg (1000 Iu) Tablet) 50 mcg PO DAILY [facility] Last Admin: 02/07/21 12:08 Dose: Not Given Documented by: Dexamethasone Sodium Phosphate (Dexamethasone Sod Phosphate 10 Mg/Ml 1 Ml Vial) 6 mg IVP DAILY [facility] Last Admin: 02/07/21 09:16 Dose: 6 mg Documented by: Donepezil HCl (Donepezil 5 Mg Tab) 5 mg PO HS [facility] Last Admin: 02/06/21 21:27 Dose: 5 mg Documented by: Enoxaparin Sodium (Enoxaparin 40 Mg/0.4 Ml Syringe) 40 mg SQ DAILY [facility] Last Admin: 02/07/21 09:16 Dose: 40 mg Documented by: Famotidine (Famotidine 20 Mg Tab) 20 mg PO DAILY [facility] Last Admin: 02/07/21 09:18 Dose: 20 mg Documented by: Sodium Chloride (Saline 0.9%) 1,000 mls @ 75 mls/hr IV .[id number] [facility] Last Admin: 02/06/21 23:00 Dose: Not Given Documented by: Lactulose (Lactulose 20 Gm/30 Ml Cup) 20 gm PO DAILY PRN PRN Reason: Constipation Lamotrigine (Lamotrigine 100 Mg Tab) 100 mg PO DAILY@1200 [facility] Last Admin: 02/07/21 12:08 Dose: 100 mg Documented by: Lamotrigine (Lamotrigine 100 Mg Tab) 200 mg PO BID [facility] Last Admin: 02/07/21 12:08 Dose: 200 mg Documented by: Loratadine (Loratadine 10 Mg Tab) 10 mg PO DAILY PRN PRN Reason: Allergy Symptoms Magnesium Hydroxide (Magnesium Hydroxide 2,400 Mg/10 Ml Cup) 2,400 mg PO DAILY PRN PRN Reason: Constipation Melatonin (Melatonin 3 Mg Tablet) 3 mg PO HS PRN PRN Reason: Insomnia Naloxone HCl (Naloxone 0.4 Mg/Ml 1 Ml Vial) 0.2 mg IV Q2M PRN PRN Reason: Opioid Reversal Ondansetron HCl (Ondansetron 4 Mg/2 Ml Vial) 4 mg IVP Q8HR PRN PRN Reason: Nausea And Vomiting Last Admin: 02/05/21 10:22 Dose: 4 mg Documented by: Pantoprazole Sodium (Pantoprazole 40 Mg Tablet) 40 mg PO HS [facility] Last Admin: 02/06/21 21:26 Dose: 40 mg Documented by: Pravastatin Sodium (Pravastatin Sodium 20 Mg Tab) 20 mg PO DAILY [facility] Last Admin: 02/07/21 12:08 Dose: Not Given Documented by: Quetiapine Fumarate (Quetiapine 50 Mg Tab) 50 mg PO HS [facility] Last Admin: 02/06/21 21:27 Dose: 50 mg Documented by: Zinc Sulfate (Zinc Sulfate 220 Mg Cap) 220 mg PO DAILY [facility] Last Admin: 02/07/21 12:09 Dose: Not Given Documented by: Past medical history to include: COPD, peripheral neuropathy, gait dysfunction uses a walker, home oxygen 2 L Social history: Lives alone. Does use a walker. No alcohol. Stop smoking 16 years ago. Smoked up to 3 packs a day for 42 years. Family history: Reviewed, noncontributory to presentation Physical examination: VITAL SIGNS: 97.4, 79, 20, 154/72, 92% on 6 L GENERAL: reclining in bed, short of breath, tired. EYES: Pupils equal. Conjunctiva normal. HEENT: External appearance of nose and ears normal, oral cavity grossly normal. NECK: JVD not raised; masses not palpable. HEART: First and second heart sounds are normal; no edema. LUNGS: Respiratory rate increased, diminished breath sounds prolonged expiration and occasional crackles. ABDOMEN: Soft, nontender, liver spleen not palpable, no masses palpable. PSYCH: Alert and oriented x3; mood and affect anxious MUSCULAR skeletal: Evidence of OA in several joints bilateral INVESTIGATIONS, reviewed in the clinical context: February 07: D-dimer 0.79 CRP 1 B12 471 White count 3 hemoglobin 14.6 platelets 142 lymphocytes 0.7 d-dimer 0.43 sodium 138 potassium 4.2 BUN 11 creatinine 0.86 CRP 3.5 EKG tracing personally reviewed by me-normal sinus rhythm, rate 67 Chest x-ray film personally reviewed by me-hyperinflated. Bilateral infiltrates CT chest and U for PE: No evidence of PE. 570 changes with superimposed consolidation and groundglass opacities. Hepatic steatosis Assessment and plan: -Acute severe COVID-19 pneumonitis in a patient symptoms been present since January 30. Patient did receive monoclonal antibodies. : Slow to respond Dexamethasone. Subcu Lovenox. Vitamin C vitamin D. Zinc. -Chronic hypoxic is pretty failure from underlying COPD 2 L of oxygen at home -Acute hypoxic respiratory failure secondary to COVID-19 pneumonitis: Not improving Currently on 6 L of oxygen. Try to keep the pulse ox above 92% -Acute medical asthenia, anorexia from COVID-19 Medical activity as tolerated. Encourage oral intake. 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 Subcu Lovenox. Incentive spirometry. Encouraged to sit up in a chair. Continue current treatment plan.
[2021-02-07] MEDS: DONEPEZIL 5 MG TAB PO SCH (20:10)
[2021-02-07] MEDS: QUEtiapine 50 MG TAB PO SCH (20:10)
[2021-02-07] MEDS: PANTOPRAZOLE 40 MG TABLET PO SCH (20:10)
[2021-02-07] MEDS: SODIUM CHLORIDE 0.9% 1,000 ML IV SCH (22:46)
[2021-02-07] MEDS: ONDANSETRON 4 MG/2 ML VIAL IVP PRN (22:48)
[2021-02-08] MEDS: SODIUM CHLORIDE 0.9% 1,000 ML IV SCH ×2 (03:03→12:40)
[2021-02-08 06:46] LABS: Calcium 8.6 mg/dL (8.4-10.2); Potassium 3.4 mmol/L (3.5-5.1)
[2021-02-08] MEDS: CHOLECALCIFEROL 25 MCG (1000 IU) TABLET PO SCH (08:42)
[2021-02-08] MEDS: ASCORBIC ACID 500 MG TAB PO SCH (08:42)
[2021-02-08] MEDS: ZINC SULFATE 220 MG CAP PO SCH (08:42)
[2021-02-08] MEDS: DEXAMETHASONE SOD PHOSPHATE 10 MG/ML 1 ML VIAL IVP SCH (08:42)
[2021-02-08] MEDS: FAMOTIDINE 20 MG TAB PO SCH (08:42)
[2021-02-08] MEDS: ENOXAPARIN 40 MG/0.4 ML SYRINGE SQ SCH (08:43)
[2021-02-08] MEDS: PRAVASTATIN SODIUM 20 MG TAB PO SCH (08:59)
[2021-02-08] MEDS: lamoTRIgine 100 MG TAB PO SCH ×3 (08:59→21:00)
[2021-02-08 09:00] LABS: C Reactive Protein 5.3 mg/dL (<1.0)
[2021-02-08] MEDS: ALBUTEROL HFA INHALER INHALATION SCH ×4 (09:15→20:05)
[2021-02-08] MEDS: SYMBICORT 80-4.5 MCG INHALER INHALATION SCH ×2 (09:15→20:05)
[2021-02-08] MEDS ORDERED: POTASSIUM CHLORIDE ER 20 MEQ TAB.ER PO STA (12:50)
--- NOTE | 2021-02-08 18:23 | P.PN ---
Progress Note - Text Progress Note Date: 02/08/21 Chief Complaint: Short of breath This is a 70-year-old patient who follows with Dr. Riggs. Chronic stable medical conditions include bipolar disorder, chronic low back pain, GERD, peripheral neuropathy, some cognitive impairment. Patient did not take the COVID-19 vacci ne. She started on bedrest 20 symptoms around January 30. That included shortness of breath cough though she has some chronic cough because of her COPD. At her baseline uses 2 L of oxygen at home. She did receive monoclonal antibodies. Her symptoms progressively became worse. She also had diarrhea which is actually better now poor appetite weak diet and rundown. aches and pains. Decided to come in. At her baseline patient lives alone and does use a walker. She is a previous smoker. February 06: Laying in bed. Breathing a bit better. 92% on 6 L. Did eat a little bit. Short of breath. Tired February 07: Propped up in bed. Tired. Short of breath. On 6 L nasal cannula. Oral intake low February 08: Sitting up in a chair. A bit less short of breath. Still on 6 L nasal cannula. Not eating much. Cough. Review of systems: Was done for constitutional, cardiovascular, GI, pulmonary. relevant finding as above Active Medications Acetaminophen (Acetaminophen Tab 325 Mg Tab) 650 mg PO Q6HR PRN PRN Reason: Mild Pain or Fever > 100.5 Last Admin: 02/07/21 20:09 Dose: 325 mg Documented by: Albuterol Sulfate (Albuterol Hfa Inhaler) 4 puff INHALATION RT-QID [facility] Last Admin: 02/08/21 16:58 Dose: 4 puff Documented by: Alprazolam (Alprazolam 0.25 Mg Tab) 0.25 mg PO Q6HR PRN PRN Reason: Anxiety Ascorbic Acid (Ascorbic Acid 500 Mg Tab) 500 mg PO DAILY [facility] Last Admin: 02/08/21 08:42 Dose: 500 mg Documented by: Budesonide/Formoterol Fumarate (Symbicort 80-4.5 Mcg Inhaler) 2 puff INHALATION RT-BID [facility] Last Admin: 02/08/21 09:15 Dose: 2 puff Documented by: Calcium Carbonate/Glycine (Calcium Carbonate 500 Mg Chewable) 1,000 mg PO Q4HR PRN PRN Reason: Dyspepsia Last Admin: 02/07/21 21:50 Dose: 1,000 mg Documented by: Cholecalciferol (Cholecalciferol 25 Mcg (1000 Iu) Tablet) 50 mcg PO DAILY [facility] Last Admin: 02/08/21 08:42 Dose: 50 mcg Documented by: Dexamethasone Sodium Phosphate (Dexamethasone Sod Phosphate 10 Mg/Ml 1 Ml Vial) 6 mg IVP DAILY [facility] Last Admin: 02/08/21 08:42 Dose: 6 mg Documented by: Donepezil HCl (Donepezil 5 Mg Tab) 5 mg PO HS [facility] Last Admin: 02/07/21 20:10 Dose: 5 mg Documented by: Enoxaparin Sodium (Enoxaparin 40 Mg/0.4 Ml Syringe) 40 mg SQ DAILY [facility] Last Admin: 02/08/21 08:43 Dose: 40 mg Documented by: Famotidine (Famotidine 20 Mg Tab) 20 mg PO DAILY [facility] Last Admin: 02/08/21 08:42 Dose: 20 mg Documented by: Sodium Chloride (Saline 0.9%) 1,000 mls @ 75 mls/hr IV .[id number] [facility] Last Admin: 02/08/21 12:40 Dose: 75 mls/hr Documented by: Lactulose (Lactulose 20 Gm/30 Ml Cup) 20 gm PO DAILY PRN PRN Reason: Constipation Lamotrigine (Lamotrigine 100 Mg Tab) 100 mg PO DAILY@1200 [facility] Last Admin: 02/08/21 12:40 Dose: 100 mg Documented by: Lamotrigine (Lamotrigine 100 Mg Tab) 200 mg PO BID [facility] Last Admin: 02/08/21 08:59 Dose: 200 mg Documented by: Loratadine (Loratadine 10 Mg Tab) 10 mg PO DAILY PRN PRN Reason: Allergy Symptoms Magnesium Hydroxide (Magnesium Hydroxide 2,400 Mg/10 Ml Cup) 2,400 mg PO DAILY PRN PRN Reason: Constipation Melatonin (Melatonin 3 Mg Tablet) 3 mg PO HS PRN PRN Reason: Insomnia Naloxone HCl (Naloxone 0.4 Mg/Ml 1 Ml Vial) 0.2 mg IV Q2M PRN PRN Reason: Opioid Reversal Ondansetron HCl (Ondansetron 4 Mg/2 Ml Vial) 4 mg IVP Q8HR PRN PRN Reason: Nausea And Vomiting Last Admin: 02/07/21 22:48 Dose: 4 mg Documented by: Pantoprazole Sodium (Pantoprazole 40 Mg Tablet) [address] [facility] Last Admin: 02/07/21 20:10 Dose: 40 mg Documented by: Pravastatin Sodium (Pravastatin Sodium 20 Mg Tab) 20 mg PO DAILY [facility] Last Admin: 02/08/21 08:59 Dose: 20 mg Documented by: Quetiapine Fumarate (Quetiapine 50 Mg Tab) [address] [facility] Last Admin: 02/07/21 20:10 Dose: 50 mg Documented by: Zinc Sulfate (Zinc Sulfate 220 Mg Cap) 220 mg PO DAILY [facility] Last Admin: 02/08/21 08:42 Dose: 220 mg Documented by: Past medical history to include: COPD, peripheral neuropathy, gait dysfunction uses a walker, home oxygen 2 L Social history: Lives alone. Does use a walker. No alcohol. Stop smoking 16 years ago. Smoked up to 3 packs a day for 42 years. Family history: Reviewed, noncontributory to presentation Physical examination: VITAL SIGNS: 98.7, 78, 17, 163.77, 91% on 6 L GENERAL: Sitting up in a chair, less short of breath, tired.. HEART: First and second heart sounds are normal; no edema. LUNGS: Respiratory rate increased, PSYCH: Alert and oriented x3; mood and affect anxious Rest of the Exam per pulmonary and nursing INVESTIGATIONS, reviewed in the clinical context: February 08: D-dimer 0.79 potassium 3.4 crit 0.85 CRP 5.3 February 07: D-dimer 0.79 CRP 1 B12 471 White count 3 hemoglobin 14.6 platelets 142 lymphocytes 0.7 d-dimer 0.43 sodium 138 potassium 4.2 BUN 11 creatinine 0.86 CRP 3.5 EKG tracing personally reviewed by me-normal sinus rhythm, rate 67 Chest x-ray film personally reviewed by me-hyperinflated. Bilateral infiltrates CT chest and U for PE: No evidence of PE. 570 changes with superimposed consolidation and groundglass opacities. Hepatic steatosis Assessment and plan: -Acute severe COVID-19 pneumonitis in a patient symptoms been present since January 30. Patient did receive monoclonal antibodies. : Slow to respond Dexamethasone. Subcu Lovenox. Vitamin C vitamin D. Zinc. -Chronic hypoxic is pretty failure from underlying COPD 2 L of oxygen at home -Acute hypoxic respiratory failure secondary to COVID-19 pneumonitis: Not improving Currently on 6 L of oxygen. Try to keep the pulse ox above 92% -Acute medical asthenia, anorexia from COVID-19 activity as tolerated. 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 Subcu Lovenox. Incentive spirometry. Continue current treatment plan.
[2021-02-08] MEDS: PANTOPRAZOLE 40 MG TABLET PO SCH (21:00)
[2021-02-08] MEDS: QUEtiapine 50 MG TAB PO SCH (21:01)
[2021-02-08] MEDS: ONDANSETRON 4 MG/2 ML VIAL IVP PRN (21:01)
[2021-02-08] MEDS: DONEPEZIL 5 MG TAB PO SCH (21:01)
[2021-02-09] MEDS: SODIUM CHLORIDE 0.9% 1,000 ML IV SCH ×2 (03:06→17:36)
[2021-02-09] MEDS: lamoTRIgine 100 MG TAB PO SCH ×3 (09:18→21:06)
[2021-02-09] MEDS: FAMOTIDINE 20 MG TAB PO SCH (09:18)
[2021-02-09] MEDS: ENOXAPARIN 40 MG/0.4 ML SYRINGE SQ SCH (09:18)
[2021-02-09] MEDS: ZINC SULFATE 220 MG CAP PO SCH (09:18)
[2021-02-09] MEDS: CHOLECALCIFEROL 25 MCG (1000 IU) TABLET PO SCH (09:18)
[2021-02-09] MEDS: ASCORBIC ACID 500 MG TAB PO SCH (09:18)
[2021-02-09] MEDS: DEXAMETHASONE SOD PHOSPHATE 10 MG/ML 1 ML VIAL IVP SCH (09:18)
[2021-02-09] MEDS: ALBUTEROL HFA INHALER INHALATION SCH ×4 (09:30→21:38)
[2021-02-09] MEDS: SYMBICORT 80-4.5 MCG INHALER INHALATION SCH ×2 (09:30→21:38)
[2021-02-09] MEDS: PRAVASTATIN SODIUM 20 MG TAB PO SCH (09:42)
--- NOTE | 2021-02-09 09:57 | P.PN ---
Subjective Progress Note Date: 02/09/21 Principal diagnosis: CoVID pneumonia 68-year-old female patient, being seen currently for COVID 19 related pneumonia. The patient is confused. She is having emesis. She is nauseated. She claims also to have diarrhea. She has been having symptoms for several days and the patient started having symptoms on 01/30/2021. She presented to her primary care physician and from [facility] to patient received multiple antibiotics. Her symptoms progressed and the patient got worse and for that reason she presented to the hospital and she was transferred to us. She has g eneral body weakness. She has body aches. She is having some limited cough. Currently on 2 L about 2 by nasal cannula. No chest pain. On her blood work, the white cell count is at 3 with a hemoglobin of 14.6 and a platelet count of 142, normal coagulation profile, [place] [address], CRP is at 3.5, amylase and lipase are not elevated. LFTs are none elevated. Normal renal function. Normal electrolytes. Glucose is 156. Patient was reevaluated today on 02/06/2021, her FiO2 requirement went up overnight, she is now on 6 L nasal cannula, however clinically the patient is feeling better, chest x-ray clearly shows bilateral interstitial infiltrates consistent with COVID-19 pneumonia. WBC count is 3.0 hemoglobin 14.6. LDH is 699 C-reactive protein is 3.5, otherwise the labs are unremarkable, d-dimer is 0.43. Patient is seen today 02/07/2021 in follow-up in the observation unit. She is currently resting in bed. Awake and alert in no acute distress. She is still having some issues with nausea. She is on 6 L nasal cannula and maintaining O2 saturation in the low 90s. She's afebrile. Hemodynamically stable. D-dimer 0.79. C-reactive protein 1.0. She is continued on Decadron, Lovenox, vitamin supplements. 0.9 normal saline at 75 ML's per hour. She is continued on Symbicort and albuterol. The patient is seen today 02/08/2021 in follow-up on the observation unit. She is currently sitting up in a chair at the bedside. Awake and alert in no acute distress. No worsening shortness of breath, cough or congestion. She is still requiring oxygen at 5 L/m per nasal cannula with O2 saturation in the low 90s. She is feeling quite a bit better. She denies any worsening shortness of breath, cough or congestion. D-dimer 1.25. C-reactive protein 4.9. She is con tinued on Decadron, Lovenox, vitamin supplements. She remains on Symbicort and albuterol. Objective - Vital Signs Vital signs: Vital Signs Temp 98.3 F 02/09/21 08:00 Pulse 71 02/09/21 08:00 Resp 18 02/09/21 08:00 BP 139/68 02/09/21 08:00 Pulse Ox 92 L 02/09/21 08:00 Intake & Output 02/08/21 02/09/21 02/09/21 18:59 06:59 18:59 Intake Total 600 118 Balance 600 118 Intake: Oral 600 118 Other: Voiding Method Toilet Diaper # Voids 3 2 - Exam GENERAL EXAM: Alert, pleasant 70-year-old female, on 5 L nasal cannula, comfortable in no apparent distress. HEAD: Normocephalic. EYES: Normal reaction of pupils, equal size. NOSE: Clear with pink turbinates. THROAT: No erythema or exudates. NECK: No masses, no JVD. CHEST: No chest wall deformity. LUNGS: Equal air entry with bibasilar crackles. CVS: S1 and S2 normal with no audible murmur, regular rhythm. ABDOMEN: No hepatosplenomegaly, normal bowel sounds, no guarding or rigidity. SPINE: No scoliosis or deformity SKIN: No rashes CENTRAL NERVOUS SYSTEM: No focal deficits, tone is normal in all 4 extremities. EXTREMITIES: There is no peripheral edema. No clubbing, no cyanosis. Per ipheral pulses are intact. - Labs CBC & Chem 7: 02/04/21 13:27 02/08/21 06:12 Labs: Abnormal Lab Results - Last 24 Hours (Table) 02/07/21 02/09/21 02/09/21 Range/Units 16:47 05:36 05:36 D-Dimer 1.25 H (<0.60) mg/L FEU C-Reactive Protein 4.9 H (<1.0) mg/dL Coronavirus (PCR) Detected A (Not Detected) Assessment and Plan Assessment: 1 acute bilateral COVID 19 related pneumonia. The patient is not vaccinated. The patient has a history of monoclonal antibodies. Symptoms started about 01/30/2021. Symptoms are essentially related to GI system and the patient has increased nausea and a few episodes of diarrhea. She is having some shortness of breath. CT angiogram was completed and there is no evidence of pulmonary embolism and there is bilateral pulmonary infiltrates consistent with infection. Inflammatory markers are mildly elevated and the patient is currently on 5 L of oxygen by nasal cannula. 2 acute hypoxic respiratory failure currently on 2 L of oxygen by nasal cannula 3 encephalopathy, could be covered-induced although underlying dementia cannot be completely excluded 4 COPD at baseline 5 chronic hypoxic respiratory failure related to COPD 6 chronic stress urinary incontinence. 7 generalized fatigue and weakness secondary to COVID 19. 8 leukopenia and thrombocytopenia secondary to COVID 19 infection Plan The patient was seen and evaluated today Currently on 5 L high flow nasal cannula Titrate down the FiO2 as tolerated Continue Symbicort, albuterol Continue Lovenox, Decadron, vitamin supplements Increase her activity as tolerated Cleared for discharge from the pulmonary standpoint The plan is to transfer to subacute rehab post discharge I, the cosigning physician, performed a history & physical examination of the patient. Lungs sounds bibasilar crackles. Maintaining good O2 saturations in the 90s on 5 L high flow nasal cannula. I discussed the assessment and plan of care with my nurse practitioner, Anyi Collazo. I attest to the above note as dictated by her.
--- NOTE | 2021-02-09 16:19 | P.DS ---
Providers Date of admission: 02/04/21 16:24 Expected date of discharge: 02/09/21 Attending physician: Jesus Pinon Consults: 02/04/21 16:16 Consult Physician Urgent Consulting Provider: Mario Brown Consult Reason/Comments: COVID 19 Do you want consulting provider notified?: Yes Primary care physician: [facility] Course: Chief Complaint: Short of breath This is a 70-year-old patient who follows with Dr. Riggs. Chronic stable medical conditions include bipolar disorder, chronic low back pain, GERD, peripheral neuropathy, some cognitive impairment. Patient did not take the COVID-19 vaccine. She started on bedrest 20 symptoms around January 30. That included shortness of breath cough though she has some chronic cough because of her COPD. At her baseline uses 2 L of oxygen at home. She did receive monoclonal antibodies. Her symptoms progressively became worse. She also had diarrhea which is actually better now poor appetite weak diet and rundown. aches and pains. Decided to come in. At her baseline patient lives alone and does use a walker. She is a previous smoker. Patient breathing slowly improved. Patient does not like hospital food. Today: Sitting up in a chair. Breathing better. On 3.5 L of nasal cannula. Cleared by pulmonary. Patient instructed to use incentive spirometry. banking center manager coordinating discharge. Discussion and discharge planning more than 35 minutes Consultation: Dr. Pinzon and partners from pulmonary Past medical history to include: COPD, peripheral neuropathy, gait dysfunction uses a walker, home oxygen 2 L Social history: Lives alone. Does use a walker. No alcohol. Stop smoking 16 years ago. Smoked up to 3 packs a day for 42 years. Family history: Reviewed, noncontributory to presentation Physical examination: VITAL SIGNS: 98.4, 71, 18, 140/74, 94% on 3.5 L GENERAL: Sitting up in a chair, breathing better HEART: First and second heart sounds are normal; no edema. LUNGS: Respiratory rate increased, PSYCH: Alert and oriented x3; mood and affect anxious Rest of the Exam per pulmonary and nursing INVESTIGATIONS, reviewed in the clinical context: February 09: D-dimer 1.25 CRP 4.9 B12 471 White count 3 hemoglobin 14.6 platelets 142 lymphocytes 0.7 d-dimer 0.43 sodium 138 potassium 4.2 BUN 11 creatinine 0.86 CRP 3.5 EKG tracing personally reviewed by me-normal sinus rhythm, rate 67 Chest x-ray film personally reviewed by me-hyperinflated. Bilateral infiltrates CT chest and U for PE: No evidence of PE. 570 changes with superimposed consolidation and groundglass opacities. Hepatic steatosis Assessment and plan: -Acute severe COVID-19 pneumonitis in a patient symptoms been present since January 30. Patient did receive monoclonal antibodies. : Better Dexamethasone. Subcu Lovenox. Vitamin C vitamin D. Zinc Discharged home on prednisone taper and 0-10 mg for DVT prophylaxis.. -Chronic hypoxic is pretty failure from underlying COPD 2 L of oxygen at home -Acute hypoxic respiratory failure secondary to COVID-19 pneumonitis: Improving DC home on 4 L of oxygen -Acute medical asthenia, anorexia from COVID-19 activity as tolerated. Ensure 1 can by mouth 3 times a day -Chronic gait dysfunction uses a walker at baseline Fall precautions -Mild Cognitive impairment B12: Normal -Chronic urinary stress incontinence Dependence -GERD Pepcid 20 mg twice a day Disposition: [facility]. Plan - Discharge Summary Discharge Rx Participant: No New Discharge Prescriptions: New Budesonide/Formoterol Fumarate [Symbicort 80-4.5 Mcg Inhaler] 1 puff INHALATION BID #10.2 gm predniSONE 10 mg PO DAILY #30 tab Rivaroxaban [Xarelto] 10 mg PO DAILY #30 tab Continue Zinc 50 mg PO DAILY Ipratropium-Albuterol Nebulize [Duoneb 0.5 mg-3 mg/3 ml Soln] 3 ml INHALATION RT-Q6H Pravastatin Sodium [Pravachol] 20 mg PO DAILY Loratadine [Claritin] 10 mg PO DAILY PRN PRN Reason: Allergy Symptoms Pantoprazole [Protonix] 40 mg PO HS Donepezil [Aricept] 5 mg PO HS QUEtiapine [SEROquel] 50 mg PO HS Cholecalciferol [Vitamin D3 (25 Mcg = 1000 Iu)] 50 mcg PO DAILY Ascorbic Acid [Vitamin C] 500 mg PO DAILY lamoTRIgine [LaMICtal] 200 mg PO BID lamoTRIgine [LaMICtal] 100 mg PO DAILY@1200 Famotidine [Pepcid] 20 mg PO DAILY Discharge Medication List Ascorbic Acid [Vitamin C] 500 mg PO DAILY 02/04/21 [History] Cholecalciferol [Vitamin D3 (25 Mcg = 1000 Iu)] 50 mcg PO DAILY 02/04/21 [History] Donepezil [Aricept] 5 mg PO HS 02/04/21 [History] Famotidine [Pepcid] 20 mg PO DAILY 02/04/21 [History] Ipratropium-Albuterol Nebulize [Duoneb 0.5 mg-3 mg/3 ml Soln] 3 ml INHALATION RT-Q6H 02/04/21 [History] Loratadine [Claritin] 10 mg PO DAILY PRN 02/04/21 [History] Pantoprazole [Protonix] 40 mg PO HS 02/04/21 [History] Pravastatin Sodium [Pravachol] 20 mg PO DAILY 02/04/21 [History] QUEtiapine [SEROquel] 50 mg PO HS 02/04/21 [History] Zinc 50 mg PO DAILY 02/04/21 [History] lamoTRIgine [LaMICtal] 100 mg PO DAILY@1200 02/04/21 [History] lamoTRIgine [LaMICtal] 200 mg PO BID 02/04/21 [History] Budesonide/Formoterol Fumarate [Symbicort 80-4.5 Mcg Inhaler] 1 puff INHALATION BID #10.2 gm 02/09/21 [Rx] Rivaroxaban [Xarelto] 10 mg PO DAILY #30 tab 02/09/21 [Rx] predniSONE 10 mg PO DAILY #30 tab 02/09/21 [Rx] Follow up Appointment(s)/Referral(s): Ken Pinzon MD [STAFF PHYSICIAN] - 10 Days Ho Riggs MD [Primary Care Provider] - 1-2 days Activity/Diet/Wound Care/Special Instructions: home fio2 4/L Incentive spirometry as directed
[2021-02-09] MEDS: DONEPEZIL 5 MG TAB PO SCH (21:06)
[2021-02-09] MEDS: PANTOPRAZOLE 40 MG TABLET PO SCH (21:06)
[2021-02-09] MEDS: QUEtiapine 50 MG TAB PO SCH (21:06)
[2021-02-10 03:23] VITALS: TEMP 98.6
[2021-02-10] MEDS: ALBUTEROL HFA INHALER INHALATION SCH (08:31)
[2021-02-10] MEDS: SYMBICORT 80-4.5 MCG INHALER INHALATION SCH (08:31)
[2021-02-10 08:32] VITALS: BP 126/62; PULSE 67; RESP 16
[2021-02-10] MEDS: FAMOTIDINE 20 MG TAB PO SCH (09:34)
[2021-02-10] MEDS: CHOLECALCIFEROL 25 MCG (1000 IU) TABLET PO SCH (09:34)
[2021-02-10] MEDS: lamoTRIgine 100 MG TAB PO SCH (09:35)
[2021-02-10] MEDS: ASCORBIC ACID 500 MG TAB PO SCH (09:35)
[2021-02-10] MEDS: ENOXAPARIN 40 MG/0.4 ML SYRINGE SQ SCH (09:36)
[2021-02-10] MEDS: ZINC SULFATE 220 MG CAP PO SCH (09:36)
[2021-02-10] MEDS: DEXAMETHASONE SOD PHOSPHATE 10 MG/ML 1 ML VIAL IVP SCH (09:50)
--- NOTE | 2021-02-10 10:12 | P.PN ---
Progress Note - Text Progress Note Date: 02/09/21 Chief Complaint: Short of breath This is a 70-year-old patient who follows with Dr. Riggs. Chronic stable medical conditions include bipolar disorder, chronic low back pain, GERD, peripheral neuropathy, some cognitive impairment. Patient did not take the COVID-19 vacci ne. She started on bedrest 20 symptoms around January 30. That included shortness of breath cough though she has some chronic cough because of her COPD. At her baseline uses 2 L of oxygen at home. She did receive monoclonal antibodies. Her symptoms progressively became worse. She also had diarrhea which is actually better now poor appetite weak diet and rundown. aches and pains. Decided to come in. At her baseline patient lives alone and does use a walker. She is a previous smoker. February 06: Laying in bed. Breathing a bit better. 92% on 6 L. Did eat a little bit. Short of breath. Tired February 07: Propped up in bed. Tired. Short of breath. On 6 L nasal cannula. Oral intake low February 08: Sitting up in a chair. A bit less short of breath. Still on 6 L nasal cannula. Not eating much. Cough. February 09: Sitting up in a chair.. Breathing better. Down to 3.5 L of nasal cannula. lan manager arranging for DC home. Late in the day wheelchair van could not be arranged so patient being held back. Review of systems: Was done for constitutional, cardiovascular, GI, pulmonary. relevant finding as above Current medications reviewed Past medical history to include: COPD, peripheral neuropathy, gait dysfunction uses a walker, home oxygen 2 L Social history: Lives alone. Does use a walker. No alcohol. Stop smoking 16 years ago. Smoked up to 3 packs a day for 42 years. Family history: Reviewed, noncontributory to presentation Physical examination: VITAL SIGNS: 98.3, 71, 18, 140/74, 93% on 3.5 L GENERAL: Sitting up in a chair, breathing better, tired.. LUNGS: Respiratory rate increased, PSYCH: Alert and oriented x3; mood and affect anxious Rest of the Exam per pulmonary and nursing INVESTIGATIONS, reviewed in the clinical context: February 09: D-dimer 1.25 CRP 4.9 February 08: D-dimer 0.79 potassium 3.4 crit 0.85 CRP 5.3 Franck 7: D-dimer 0.79 CRP 1 B12 471 White count 3 hemoglobin 14.6 platelets 142 lymphocytes 0.7 d-dimer 0.43 sodium 138 potassium 4.2 BUN 11 creatinine 0.86 CRP 3.5 EKG tracing personally reviewed by me-normal sinus rhythm, rate 67 Chest x-ray film personally reviewed by me-hyperinflated. Bilateral infiltrates CT chest and U for PE: No evidence of PE. 570 changes with superimposed consolidation and groundglass opacities. Hepatic steatosis Assessment and plan: -Acute severe COVID-19 pneumonitis in a patient symptoms been present since January 30. Patient did receive monoclonal antibodies. : Better Dexamethasone. Subcu Lovenox. Vitamin C vitamin D. Zinc. -Chronic hypoxic is pretty failure from underlying COPD 2 L of oxygen at home -Acute hypoxic respiratory failure secondary to COVID-19 pneumonitis: Better Currently on 3.5 L of oxygen. Try to keep the pulse ox above 92% -Acute medical asthenia, anorexia from COVID-19 activity as tolerated. Ensure 1 can by mouth 3 times a day -Chronic gait dysfunction uses a walker at baseline Fall precautions -Cognitive impairment B12: Normal -Chronic urinary stress incontinence Dependence -GERD Pepcid 20 mg twice a day Patient will be discharged on oxygen. Wheelchair van could not be arranged today. Hence patient get discharged tomorrow. Care was discussed with the patient. Total time spent today about 45 minutes with over 25 minutes of discussion.
--- NOTE | 2021-02-10 14:19 | P.DS ---
Providers Date of admission: 02/04/21 16:24 Expected date of discharge: 02/10/21 Attending physician: Jesus Pinon Consults: 02/04/21 16:16 Consult Physician Urgent Consulting Provider: Mario Brown Consult Reason/Comments: COVID 19 Do you want consulting provider notified?: Yes Primary care physician: [facility] Course: Chief Complaint: Short of breath This is a 70-year-old patient who follows with Dr. Riggs. Chronic stable medical conditions include bipolar disorder, chronic low back pain, GERD, peripheral neuropathy, some cognitive impairment. Patient did not take the COVID-19 vaccine. She started on bedrest 20 symptoms around January 30. That included shortness of breath cough though she has some chronic cough because of her COPD. At her baseline uses 2 L of oxygen at home. She did receive monoclonal antibodies. Her symptoms progressively became worse. She also had diarrhea which is actually better now poor appetite weak diet and rundown. aches and pains. Decided to come in. At her baseline patient lives alone and does use a walker. She is a previous smoker. Patient breathing slowly improved. Patient does not like hospital food. Today: No new issues. Breathing stable. Transport arranged Consultation: Dr. Pinzon and partners from pulmonary Past medical history to include: COPD, peripheral neuropathy, gait dysfunction uses a walker, home oxygen 2 L Social history: Lives alone. Does use a walker. No alcohol. Stop smoking 16 years ago. Smoked up to 3 packs a day for 42 years. Family history: Reviewed, noncontributory to presentation Physical examination: VITAL SIGNS: 98.6, 67, 16, 126/62, 92% on 3.5 L GENERAL: Sitting up in a chair, breathing better HEART: First and second heart sounds are normal; no edema. LUNGS: Respiratory rate increased, PSYCH: Alert and oriented x3; mood and affect anxious Rest of the Exam per pulmonary and nursing INVESTIGATIONS, reviewed in the clinical context: February 09: D-dimer 1.25 CRP 4.9 B12 471 White count 3 hemoglobin 14.6 platelets 142 lymphocytes 0.7 d-dimer 0.43 sodium 138 potassium 4.2 BUN 11 creatinine 0.86 CRP 3.5 EKG tracing personally reviewed by me-normal sinus rhythm, rate 67 Chest x-ray film personally reviewed by me-hyperinflated. Bilateral infiltrates CT chest and U for PE: No evidence of PE. 570 changes with superimposed consolidation and groundglass opacities. Hepatic steatosis Assessment and plan: -Acute severe COVID-19 pneumonitis in a patient symptoms been present since January 30. Patient did receive monoclonal antibodies. : Better Dexamethasone. Subcu Lovenox. Vitamin C vitamin D. Zinc Discharged home on prednisone taper and 0-10 mg for DVT prophylaxis.. -Chronic hypoxic is pretty failure from underlying COPD 2 L of oxygen at home -Acute hypoxic respiratory failure secondary to COVID-19 pneumonitis: Improving DC home on 4 L of oxygen -Acute medical asthenia, anorexia from COVID-19 activity as tolerated. Ensure 1 can by mouth 3 times a day -Chronic gait dysfunction uses a walker at baseline Fall precautions -Mild Cognitive impairment B12: Normal -Chronic urinary stress incontinence Dependence -GERD Pepcid 20 mg twice a day Disposition: [facility]. Plan - Discharge Summary Discharge Rx Participant: No New Discharge Prescriptions: New Budesonide/Formoterol Fumarate [Symbicort 80-4.5 Mcg Inhaler] 1 puff INHALATION BID #10.2 gm predniSONE 10 mg PO DAILY #30 tab Rivaroxaban [Xarelto] 10 mg PO DAILY #30 tab Continue Zinc 50 mg PO DAILY Ipratropium-Albuterol Nebulize [Duoneb 0.5 mg-3 mg/3 ml Soln] 3 ml INHALATION RT-Q6H Pravastatin Sodium [Pravachol] 20 mg PO DAILY Loratadine [Claritin] 10 mg PO DAILY PRN PRN Reason: Allergy Symptoms Pantoprazole [Protonix] 40 mg PO HS Donepezil [Aricept] 5 mg PO HS QUEtiapine [SEROquel] 50 mg PO HS Cholecalciferol [Vitamin D3 (25 Mcg = 1000 Iu)] 50 mcg PO DAILY Ascorbic Acid [Vitamin C] 500 mg PO DAILY lamoTRIgine [LaMICtal] 200 mg PO BID lamoTRIgine [LaMICtal] 100 mg PO DAILY@1200 Famotidine [Pepcid] 20 mg PO DAILY Discharge Medication List Ascorbic Acid [Vitamin C] 500 mg PO DAILY 02/04/21 [History] Cholecalciferol [Vitamin D3 (25 Mcg = 1000 Iu)] 50 mcg PO DAILY 02/04/21 [History] Donepezil [Aricept] 5 mg PO HS 02/04/21 [History] Famotidine [Pepcid] 20 mg PO DAILY 02/04/21 [History] Ipratropium-Albuterol Nebulize [Duoneb 0.5 mg-3 mg/3 ml Soln] 3 ml INHALATION RT-Q6H 02/04/21 [History] Loratadine [Claritin] 10 mg PO DAILY PRN 02/04/21 [History] Pantoprazole [Protonix] 40 mg PO HS 02/04/21 [History] Pravastatin Sodium [Pravachol] 20 mg PO DAILY 02/04/21 [History] QUEtiapine [SEROquel] 50 mg PO HS 02/04/21 [History] Zinc 50 mg PO DAILY 02/04/21 [History] lamoTRIgine [LaMICtal] 100 mg PO DAILY@1200 02/04/21 [History] lamoTRIgine [LaMICtal] 200 mg PO BID 02/04/21 [History] Budesonide/Formoterol Fumarate [Symbicort 80-4.5 Mcg Inhaler] 1 puff INHALATION BID #10.2 gm 02/09/21 [Rx] Rivaroxaban [Xarelto] 10 mg PO DAILY #30 tab 02/09/21 [Rx] predniSONE 10 mg PO DAILY #30 tab 02/09/21 [Rx] Follow up Appointment(s)/Referral(s): Ken Pinzon MD [STAFF PHYSICIAN] - 10 Days Ho Riggs MD [Primary Care Provider] - 1-2 days Activity/Diet/Wound Care/Special Instructions: home fio2 4/L Incentive spirometry as directed
== END 2021-02-10 09:40 | disposition home or self-care (01) | DRG 177 ==
LOC: EC 12:39 → 4SSUR 16:24 → 1SOBS 17:35 → 4SSUR 02-09 19:23 → 1SOBS 02-09 19:58
PROVIDERS: ADMIT Hospitalist; ATTEND Hospitalist
DX: U07.1 COVID-19 (principal); J12.82 Pneumonia due to coronavirus disease 2019; J96.21 Acute and chronic respiratory failure with hypoxia; J44.0 Chronic obstructive pulmonary disease with (acute) lower respiratory infection; D69.59 Other secondary thrombocytopenia; D72.819 Decreased white blood cell count, unspecified; F31.9 Bipolar disorder, unspecified; G31.84 Mild cognitive impairment of uncertain or unknown etiology; G62.9 Polyneuropathy, unspecified; G89.29 Other chronic pain; K21.9 Gastro-esophageal reflux disease without esophagitis; N39.3 Stress incontinence (female) (male); Z79.899 Other long term (current) drug therapy; Z87.891 Personal history of nicotine dependence; Z90.710 Acquired absence of both cervix and uterus; M54.50 Low back pain, unspecified; M54.6 Pain in thoracic spine; R11.2 Nausea with vomiting, unspecified; R63.0 Anorexia; R41.89 Other symptoms and signs involving cognitive functions and awareness; R26.9 Unspecified abnormalities of gait and mobility
CPT/HCPCS: 36415; 71046; 71275; 80048; 80053; 82607; 83615; 83690; 83735; 83880; 84484; 85025; 85379; 85610; 85730; 86140; 93005; 94640; 94760; 96374; 96375; 96376; 99285